=== PATIENT | male | born 1960 | race Caucasian/White ===

== ENCOUNTER 2018-01-06 19:20 | Emergency (ER) | payer MEDICARE ==
[2018-01-06] MEDS ORDERED: IPRATROPIUM/ALBUTEROL SULFATE 3 ML SOLUTION IH ONE (21:42)
[2018-01-06] MEDS ORDERED: LORATADINE 10 MG TABLET ONE (22:14)
[2018-01-06] MEDS ORDERED: OXYMETAZOLINE HCL SPRAY 15 ML BOTTLE ONE (22:57)
[2018-01-06] MEDS ORDERED: METHYLPREDNISOLONE SOD SUCC 125MG/2ML VIAL ONE (22:58)
== END 2018-01-07 00:20 | disposition home or self-care (01) ==
LOC: EDH 19:20
DX: J68.0 Bronchitis and pneumonitis due to chemicals, gases, fumes and vapors (principal); Z72.0 Tobacco use
CPT/HCPCS: 71046; 94640; 96372; 99284; J2930